=== PATIENT | female | born 1950 | race Caucasian/White ===

== ENCOUNTER → 2017-02-28 | Outpatient (CLI) | payer OTHER ==
[~2017-02-28] MED LIST: DELTASONE20 M1 PO; TALWIN PO; ZITHROMAX250 MG PO
== END | disposition home or self-care (01) ==
LOC: CARD 09:00
DX: I49.9 Cardiac arrhythmia, unspecified (principal)

== ENCOUNTER → 2017-10-17 | Outpatient (CLI) | payer OTHER ==
[2017-10-17 10:53] LABS: BILIRUBIN NEGATIVE (NEGATIVE); BLOOD NEGATIVE (NEGATIVE); CLARITY SL CLOUDY (CLEAR); COLOR YELLOW (YELLOW); GLUCOSE NEGATIVE (NEGATIVE); KETONE NEGATIVE (NEGATIVE); LEUKO ESTERASE TRACE (NEGATIVE); NITRITE NEGATIVE (NEGATIVE); SPECIFIC GRAVITY <= 1.005 (1.005-1.030); UROBILINOGEN 0.2 E.U./dl (0.2-1.0)
[2017-10-17 11:07] LABS: BACTERIA 2+; EPITHELIAL CELLS 16-20
== END | disposition home or self-care (01) ==
LOC: LAB 09:59
PROVIDERS: Internal Medicine
DX: N39.0 Urinary tract infection, site not specified (principal); R30.0 Dysuria; Z68.29 Body mass index [BMI] 29.0-29.9, adult

== ENCOUNTER → 2018-04-22 | Outpatient (CLI) | payer OTHER ==
[2018-04-22 10:26] LABS: ALBUMIN 3.6 gm/dl (3.1-4.5); ALKALINE PHOSPHATASE 129 U/L (45-117); BILIRUBIN, DIRECT < 0.1 mg/dL (0.0-0.2); LIPASE 263 U/L (73-393); SGOT/AST 24 IU/L (3-35); SGPT/ALT 18 U/L (12-78); TOTAL PROTEIN 7.1 gm/dL (6.4-8.2)
== END | disposition home or self-care (01) ==
LOC: LAB 08:12 → US 08:30
PROVIDERS: Internal Medicine Gastroenterology
DX: R10.84 Generalized abdominal pain (principal)

== ENCOUNTER → 2019-07-01 | Outpatient (CLI) | payer MEDICARE ==
[2019-07-01 11:57] LABS: BASO # 0.1 10*3/uL (0.0-0.1); BASO % 0.5 % (0.0-1.0); EOS # 0.1 10*3/uL (0.0-0.4); EOS % 1.5 % (1.0-4.0); HEMOGLOBIN 15.2 g/dl (12.0-16.0); LYMPH # 2.7 10*3/uL (1.3-4.4); LYMPH % 28.2 % (27.0-41.0); MEAN CELL VOLUME 89.5 fl (81.0-99.0); MEAN CORPUSCULAR HGB 30.2 pg (27.0-31.0); MEAN CORPUSCULAR HGB CONC 33.8 g/dl (33.0-37.0); MEAN PLATELET VOLUME 9.5 fl (9.6-12.3); MONO # 0.6 10*3/uL (0.1-1.0); MONO % 6.5 % (3.0-9.0); NEUT # 6.1 10*3/uL (2.3-7.9); NEUT % 63.1 % (47.0-73.0); PLATELET COUNT AUTOMATED 317 10*3/uL (130-400); RED BLOOD COUNT 5.03 10*6/uL (4.10-5.10); RED CELL DISTRI WIDTH 13.6 % (0-14.5); WHITE BLOOD COUNT 9.6 10*3/uL (4.8-10.8)
[2019-07-01 12:28] LABS: THYROID STIM HORMONE (HS) 1.28 uIU/ml (0.358-4.75); THYROXINE (T4) TOTAL 8.8 ug/dl (4.8-13.9)
[2019-07-01 12:31] LABS: ALBUMIN 3.9 gm/dl (3.1-4.5); CREATININE 1.26 mg/dL (0.55-1.02); POTASSIUM 3.4 mmol/L (3.5-5.1); TOTAL PROTEIN 7.5 gm/dL (6.4-8.2)
== END | disposition home or self-care (01) ==
LOC: LAB 11:31
PROVIDERS: Specialist
DX: L50.9 Urticaria, unspecified (principal); R94.6 Abnormal results of thyroid function studies

== ENCOUNTER → 2020-08-28 | Outpatient (CLI) | payer MEDICARE ==
[2020-08-28 15:22] LABS: ALBUMIN 3.6 gm/dl (3.1-4.5); ALKALINE PHOSPHATASE 123 U/L (45-117); BUN 15 mg/dl (7-24); CHLORIDE 103 mmol/L (98-107); CREATININE 1.02 mg/dL (0.55-1.02); POTASSIUM 3.5 mmol/L (3.5-5.1); SGOT/AST 20 IU/L (3-35); SGPT/ALT 21 U/L (12-78); SODIUM 140 mmol/L (136-145); TOTAL PROTEIN 7.3 gm/dL (6.4-8.2)
== END | disposition home or self-care (01) ==
LOC: LAB 14:39
PROVIDERS: ATTEND Orthopaedic Surgery
DX: Z79.01 Long term (current) use of anticoagulants (principal)

== ENCOUNTER → 2020-11-28 | Outpatient (CLI) | payer MEDICARE | END | disposition home or self-care (01) | LOC: RESCLI 08:48 | PROVIDERS: ATTEND Emergency Medicine | DX: N95.2 Postmenopausal atrophic vaginitis (principal); I10 Essential (primary) hypertension; Z79.899 Other long term (current) drug therapy; Z88.8 Allergy status to other drugs, medicaments and biological substances ==

== ENCOUNTER → 2021-07-11 | Outpatient (CLI) | payer MEDICARE | END | disposition home or self-care (01) | LOC: RAD 10:57 | PROVIDERS: ATTEND Internal Medicine | DX: M17.11 Unilateral primary osteoarthritis, right knee (principal); M11.261 Other chondrocalcinosis, right knee ==

== ENCOUNTER → 2025-07-18 | Outpatient (CLI) | payer MEDICARE | END | disposition home or self-care (01) | LOC: US 15:39 | PROVIDERS: ATTEND Orthopaedic Surgery | DX: M25.561 Pain in right knee (principal); M79.89 Other specified soft tissue disorders ==